=== PATIENT | female | born 1930 | race Hispanic/Latino ===

== ENCOUNTER 2018-04-13 17:44 | Emergency (ER) | payer MEDICARE, OTHER ==
[2018-04-13] MEDS ORDERED: ONDANSETRON HCL 4 MG/2 ML VIAL ONE ×2 (18:03→19:52)
[2018-04-13] MEDS ORDERED: SODIUM CHLORIDE 0.9% 1000ML 1,000 ML IV ONE (18:03)
[2018-04-13] MEDS ORDERED: MORPHINE SULFATE 4 MG/1ML SYG ONE ×2 (18:04→18:55)
[2018-04-13] MEDS ORDERED: LORAZEPAM 2 MG/ML 1 ML VIAL ONE (18:55)
[2018-04-13] MEDS ORDERED: LABETALOL HCL 5 MG/ML 20ML VIAL IV ONE (19:16)
[2018-04-13] MEDS ORDERED: MORPHINE SULFATE 2 MG/ML 1ML SYG ONE ×2 (19:53→20:04)
== END 2018-04-14 00:45 | disposition home or self-care (01) ==
LOC: EDH 17:44
DX: S43.085A Other dislocation of left shoulder joint, initial encounter (principal); W18.39XA Other fall on same level, initial encounter; Y93.01 Activity, walking, marching and hiking; Y92.89 Other specified places as the place of occurrence of the external cause; Y99.8 Other external cause status
CPT/HCPCS: 23650; 71045; 73030 ×2; 73060; 96374; 96375; 96376; 99284; J2060; J2270 ×2; J2405 ×2; J3490; J7030